=== PATIENT | male | born 1940 | race Caucasian/White ===

== ENCOUNTER 2018-06-07 16:53 | Emergency (ER) | payer MEDICARE ==
[~2018-06-07] VITALS: Ht 177.8 cm; Wt 77.1 kg
[2018-06-07 17:00] VITALS: BP_SYST 117
[2018-06-07 19:51] LABS: BILIRUBIN,URINE NEGATIVE (NEGATIVE); BLOOD, URINE 3+ (NEGATIVE); CLARITY/URINE SL CLOUDY (CLEAR); COLOR,URINE YELLOW (YELLOW); GLUCOSE,URINE NEGATIVE (NEGATIVE); KETONES,URINE NEGATIVE (NEGATIVE); LEUKOCYTE ESTERASE ,URINE 2+ (NEGATIVE); NITRITE, URINE POSITIVE (NEGATIVE); PROTEIN URINE TRACE (NEGATIVE); UROBILINOGEN,URINE 0.2 (0.2-1.0)
[2018-06-07 19:56] LABS: BACTERIA,URINE MODERATE /HPF (None Seen); WBC,URINE >100 /HPF (0-3)
[2018-06-07 19:59] LABS: HEMATOCRIT 32.2 % (36-54); HEMOGLOBIN 10.8 g/dL (14.0-18.0); MEAN CORPUSCULAR HEMOGLOBIN 31 pg (27-31); MEAN CORPUSCULAR HGB CONC 34 % (32-36); MEAN CORPUSCULAR VOLUME 91 fL (79.0-98.0); PLATELET COUNT (AUTO) 196 K/uL (130-430); RED BLOOD CELL COUNT(AUTO) 3.53 MIL/uL (4.2-6.2); WHITE BLOOD COUNT (AUTO) 22.7 K/uL (4.8-10.8)
[2018-06-07 20:10] LABS: ANION GAP 11 (5-15); CALCIUM 8.9 mg/dL (8.4-11.0); CHLORIDE 101 mmol/L (98-107); CREATININE 1.97 mg/dL (0.55-1.30); GLUCOSE 99 mg/dL (70-99); POTASSIUM 3.8 mmol/L (3.5-5.1); SODIUM SERUM 136 mmol/L (136-145); UREA NITROGEN, BLOOD 34 mg/dL (8-21)
[2018-06-07 20:14] LABS: ALANINE AMINOTRANSFERASE 23 U/L (12-78); ALBUMIN 2.8 g/dL (3.4-4.8); ASPARTATE AMINOTRANSFERASE 27 U/L (10-37); TOTAL BILIRUBIN 0.6 mg/dL (0.0-1.0)
[2018-06-07] MEDS ORDERED: LEVOFLOXACIN 500 MG/D5W 100 ML IV ONE (20:15)
[2018-06-07 20:21] LABS: BAND % (MANUAL) 16 % (0-6); BASOPHILS % (MANUAL) 0 % (0-2); EOSINOPHILS % (MANUAL) 0 % (0-7); LYMPHOCYTES % (MANUAL) 2 % (20-46); MONOCYTES % (MANUAL) 2 % (0-11)
[2018-06-07] MEDS ORDERED: NACL 0.9% 1,000 ML IV ONE ×2 (20:30)
[2018-06-07] MEDS ORDERED: MORPHINE 4 MG/ML INJ. SYRINGE IVP ONE (20:30)
[2018-06-07 20:42] LABS: INR 3.3 (0.80-1.20)
[2018-06-07 20:56] LABS: PROTHROMBIN TIME 32.3 SECS (9.5-12.5)
[2018-06-08 01:20] VITALS: BP_SYST 101
== END 2018-06-08 01:20 | disposition short-term general hospital (02) ==
LOC: SED 16:53
DX: S70.02XA Contusion of left hip, initial encounter (principal); S80.212A Abrasion, left knee, initial encounter; S80.211A Abrasion, right knee, initial encounter; W19.XXXA Unspecified fall, initial encounter; Y93.89 Activity, other specified; Y92.89 Other specified places as the place of occurrence of the external cause; Y99.8 Other external cause status
CPT/HCPCS: 36415; 70450; 71045; 72170; 73502; 80053; 81000; 83605; 85007; 85027; 85610; 85730; 87040; 87086; 87186; 96365; 96375; 99285; J1956; J2270; J7030